=== PATIENT | female | born 1935 | race Caucasian/White ===

== ENCOUNTER 2024-07-13 13:59 | Emergency (ER) | payer MEDICARE ==
[~2024-07-13] VITALS: Ht 165.1 cm; Wt 56.8 kg
[2024-07-13] MEDS ORDERED: LOSA25TA13 (14:12)
[2024-07-13] MEDS ORDERED: METO1TAB7 (14:12)
[2024-07-13] MEDS ORDERED: AMLO2.5T3 (14:12)
[2024-07-13] MEDS: ACETAMINOPHEN 500 MG TAB PO ONE (17:16)
[2024-07-13] MEDS: BOOSTRIX VACCINE (TETANUS/DIPHTH/ACEL. PERTUSSIS) 0.5ML SYR IM.IMMUN ONE (17:16)
[2024-07-13 17:29] VITALS: TEMP 96.7
[2024-07-13 17:33] LABS: BASO # 0.1 10^3/uL (0.0-0.2); BASO % 0.9 % (0.0-1.0); EOS # 0.2 10^3/uL (0.0-0.5); EOS % 2.8 % (0.0-3.0); HEMATOCRIT 41.5 % (36.0-47.0); HEMOGLOBIN 13.4 g/dl (12.0-15.5); LYMPH % 12.9 % (24.0-44.0); MEAN CORPUSCULAR HEMOGLOBIN 28.5 pg (27.0-33.0); MEAN CORPUSCULAR HGB CONC 32.3 g/dl (32.0-36.5); MEAN CORPUSCULAR VOLUME 88.3 fl (80.0-96.0); MONO # 0.6 10^3/uL (0.0-0.8); MONO % 7.4 % (2.0-8.0); NEUTROPHILS % 75.5 % (36.0-66.0); PLATELET COUNT, AUTOMATED 240 10^3/uL (150-450)
[2024-07-13 17:50] LABS: BLOOD UREA NITROGEN 13 MG/DL (9-23); CALCIUM LEVEL 10.3 MG/DL (8.3-10.6); CARBON DIOXIDE LEVEL 28 MMOL/L (20-31); CHLORIDE LEVEL 108 MMOL/L (98-107); CREATININE FOR GFR 0.49 MG/DL (0.55-1.30); GLOMERULAR FILTRATION RATE > 60.0 (>32); GLUCOSE, FASTING 112 MG/DL (74-106); POTASSIUM SERUM 4.2 MMOL/L (3.5-5.1); SODIUM LEVEL 139 MMOL/L (136-145)
[2024-07-13 18:00] VITALS: BP 150/81; O2SAT 94
== END 2024-07-13 18:43 | disposition home or self-care (01) ==
LOC: M ED 13:59 → EDBD 13:59 → M ED 18:43
DX: S02.2XXA Fracture of nasal bones, initial encounter for closed fracture (principal); S50.811A Abrasion of right forearm, initial encounter; S80.211A Abrasion, right knee, initial encounter; W19.XXXA Unspecified fall, initial encounter; I49.1 Atrial premature depolarization; M50.321 Other cervical disc degeneration at C4-C5 level; M50.322 Other cervical disc degeneration at C5-C6 level; M50.323 Other cervical disc degeneration at C6-C7 level; M85.88 Other specified disorders of bone density and structure, other site; Y92.59 Other trade areas as the place of occurrence of the external cause; Y93.89 Activity, other specified; Y99.9 Unspecified external cause status; Z79.899 Other long term (current) drug therapy; Z23 Encounter for immunization